=== PATIENT | female | born 1940 | race Caucasian/White ===

== ENCOUNTER → 2017-07-25 11:56 | Outpatient (CLI) | payer MEDICARE ==
[2015-04-13 13:40] VITALS: BMI 23.0
[~2017-07-25 11:56] MED LIST: AMBIEN5 MG PO; CALCIUM CITRATE1 TAB PO; DEXILANT60 MG PO; HYDROCODONE-APA1 TAB PO; LEVOTHROID112 MCG PO; MULTIPLE VITAMI1 TA1 PO; PHENERGAN25 M1 PO; PLAQUENIL200 MG PO; PRILOSEC20 MG PO; SYNTHROID125 MCG PO; TYLENOL SINUS PO; VITAMIN B-12500 MC1 PO; ZYRTEC10 MG PO
== END | disposition home or self-care (01) ==
LOC: D.RAD 11:56
DX: R13.12 Dysphagia, oropharyngeal phase (principal)